=== PATIENT | male | born 1955 | race Caucasian/White ===

== ENCOUNTER → 2016-11-19 | Outpatient (CLI) | payer BC ==
[~2016-11-19] MED LIST: ASPIRIN 81M81 MG/TA2 PO; BENICAR40 MG PO; EFFIENT10 MG PO; FISH OIL1000 MG PO; FLOMAX 0.40.4 MG/CAP PO; FOLIC ACID 11 MG/TA1 PO; LIPITOR 40MG TA40 MG PO; LIPITOR 80MG80 MG PO; LUTEIN20 MG PO; NITROSTAT0.4 MG/TAB SL; NORVASC 5MG5 MG/TAB PO; TENORMIN 5050 MG/TAB PO; ZETIA 10MG TAB10 MG PO
== END ==
LOC: COL.RAD 09:35
DX: M25.511 Pain in right shoulder (principal)
CPT/HCPCS: J3301; Q9967

== ENCOUNTER → 2020-02-13 | Outpatient (CLI) | payer MEDICARE, BC | LOC: COL.RAD 08:27 | DX: I73.9 Peripheral vascular disease, unspecified (principal); I25.10 Atherosclerotic heart disease of native coronary artery without angina pectoris; K57.30 Diverticulosis of large intestine without perforation or abscess without bleeding; Z98.61 Coronary angioplasty status | CPT/HCPCS: Q9967 ==

== ENCOUNTER 2021-02-06 17:13 | Outpatient (RCR) | payer MEDICARE, BC | END 2021-02-13 15:49 | disposition home or self-care (01) | LOC: COL.CR 17:13 | DX: Z48.812 Encounter for surgical aftercare following surgery on the circulatory system (principal); Z95.1 Presence of aortocoronary bypass graft ==